=== PATIENT | male | born 1975 | race Caucasian/White ===

== ENCOUNTER 2022-12-07 16:30 | Outpatient (CLI) | payer BC, SELFPAY | END 2022-12-07 16:31 | disposition home or self-care (01) | LOC: AMB 12-08 00:10 | PROVIDERS: Visit Provider Emergency Medicine Emergency Medical Services | DX: S69.92XA Unspecified injury of left wrist, hand and finger(s), initial encounter (principal); W26.0XXA Contact with knife, initial encounter; Y92.511 Restaurant or cafe as the place of occurrence of the external cause | CPT/HCPCS: A0425; A0429 ==

== ENCOUNTER 2022-12-07 17:01 | Emergency (ER) | payer SELFPAY ==
[2022-12-07 17:07] VITALS: BP 117/79; PULSE 66; RESP 20; TEMP 35.7; O2SAT 97; BMI 39.4
--- NOTE | 2022-12-07 17:22 | ED_ITS ---
HPI - Wound/Laceration General Chief Complaint: Laceration/Wound Stated Complaint: Finger Lac Time Seen by Provider: 12/07/22 17:10 History of Present Illness HPI narrative: This 46-year-old male comes in with a laceration to his left index finger. 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 He states that he was using his pocket knife to cut a zip tie and accidentally cut his left index finger. He has a 2 cm flap-type laceration of the distal portion of this finger. He states that his tetanus is up-to-date. Related Data Home Medications Medication Instructions Recorded Confirmed fluoxetine .ROUTE 12/07/22 metformin 500 mg tablet 500 mg PO DAILY 12/07/22 12/07/22 Allergies Allergy/AdvReac Type Severity Reaction Status Date / Time No Known Drug Allergies Allergy Verified 12/07/22 17:11 Review of Systems Status of ROS: Reports: 10 or more systems reviewed and unremarkable except as noted in History and below Narrative: Constitutional: No fevers, no weight gain or loss. Eyes: No discharge. No vision changes. HENT: No congestion, no sore throat, no ear pain. Cardiovascular: No chest pain, no palpitations. Respiratory: No shortness of breath, no wheezes, no cough. Gastrointestinal: No abdominal pain, no vomiting, no diarrhea. Genitourinary: No dysuria, no hematuria. Musculoskeletal: Normal range of motion. Skin: No rashes, no pruritis. Finger laceration as described above. Neurological: No dizziness, weakness, sensory change, speech change. Endo/Heme/Allergies: No bruising or bleeding. No polydipsia. Pysch: no suicidality, no anxiety, no insomnia. All other systems reviewed and are negative. PFSH PFSH Social History Smoking Status: Never smoker Do you use any of these nicotine containing products: None Second hand tobacco smoke exposure: No How often do you have a drink containing alcohol: never How often do you have six or more drinks on one occasion: Never AUDIT-C Alcohol total score: 0 Non-prescribed substance use: denies use Exam Narrative: Exam Narrative: Constitutional: Well-developed, well-nourished, no acute distress. HEENT: Normocephalic, atraumatic. Neck: Normal range of motion. Nontender. Supple. Heart: Intact distal pulses. Lungs: No chest discomfort. No wheezes, rhonchi, or rales. Abdomen: Nontender. Back: Normal range of motion. Extremities: Normal range of motion. 2 cm flap-type laceration of the distal portion of the left index finger. Skin: Intact. No rash. Warm. No erythema or pallor. Neurologic: No altered sensation. No weakness. Alert and oriented. Psychiatric: No suicidality. No anxiety or depression. No insomnia. Nursing notes and vitals signs are reviewed. Const: Vital Signs, click to edit/add: Vital Signs - 24 hr 12/07/22 17:07 Temperature 96.3 F L Pulse Rate [Pulse Oximeter] 66 Respiratory Rate 20 Blood Pressure [Le ft Upper Arm] 117/79 Pulse Oximetry 97 Oxygen Delivery Me thod Room Air Course Vital Signs Vital signs: Initial Vital Signs Temperature 96.3 F L 12/07/22 17:07 Temperature Source Temporal Artery Scan 12/07/22 17:07 Pulse Rate 66 12/07/22 17:07 Respiratory Rate 20 12/07/22 17:07 Blood Pressure 117/79 12/07/22 17:07 Blood Pressure Mean 91 12/07/22 17:07 Blood Pressure Position Sitting 12/07/22 17:07 Pulse Oximetry 97 12/07/22 17:07 Oxygen Delivery Method 12/07/22 17:07 Vital Signs Temperature 96.3 F L 12/07/22 17:07 Pulse Rate 66 12/07/22 17:07 Respiratory Rate 20 12/07/22 17:07 Blood Pressure 117/79 12/07/22 17:07 Pulse Oximetry 97 12/07/22 17:07 Oxygen Delivery Method 12/07/22 17:07 Temperature 96.3 F L 12/07/22 17:07 Pulse Rate 66 12/07/22 17:07 Respiratory Rate 20 12/07/22 17:07 Blood Pressure 117/79 12/07/22 17:07 Pulse Oximetry 97 12/07/22 17:07 Oxygen Delivery Method 12/07/22 17:07 MDM - Wound/Laceration MDM Narrative Medical decision making narrative: This patient has a laceration of his left index finger. I discussed options for repairing this wound. He elected to have Dermabond applied. The wound was cleansed and Dermabond was applied with excellent results. A Band-Aid was also applied and instructions regarding wound care were given. Discharge Plan Discharge Clinical Impression: Laceration Patient Disposition: Home, Self-Care Condition: Improved Additional Instructions: Keep wound clean and dry. Use [id number] medicines as needed and directed. Follow up with MD as needed. Prescriptions: No Action metformin 500 mg tablet 500 mg PO DAILY fluoxetine .ROUTE Stand Alone Forms: [employer] Info Instructions
== END 2022-12-07 17:41 | disposition home or self-care (01) ==
LOC: ED 17:29
PROVIDERS: Emergency Provider Emergency Medicine Emergency Medical Services
DX: S61.211A Laceration without foreign body of left index finger without damage to nail, initial encounter (principal); W26.0XXA Contact with knife, initial encounter
CPT/HCPCS: 12001; 99282; 99284